=== PATIENT | male | born 1945 | race Caucasian/White ===

== ENCOUNTER 2024-06-23 17:05 | Inpatient (IN) | payer MEDICARE, OTHER ==
[~2024-06-23] VITALS: Ht 165.1 cm; Wt 60.3 kg
[2024-06-23] MEDS ORDERED: IV NS 0.9% 250 ML IV ONE (17:20)
[2024-06-23] MEDS ORDERED: IOHEXOL-350 100 ML VIAL IV ONE (17:20)
[2024-06-23 17:49] LABS: BASOPHILS % (AUTO) 0.5 % (0.0-2.0); EOSINOPHILS # (AUTO) 0.2 K/uL (0.0-0.7); EOSINOPHILS % (AUTO) 2.2 % (0.0-6.0); HEMATOCRIT 37 % (39-51); HEMOGLOBIN 12.7 g/dL (13.5-17.5); LYMPHOCYTES # (AUTO) 0.6 K/uL (0.8-4.8); LYMPHOCYTES % (AUTO) 6.6 % (20.0-44.0); MEAN CORPUSCULAR HEMOGLOBIN 32 PG (26.0-33.0); MEAN CORPUSCULAR HGB CONC 34 g/dl (31.0-36.0); MEAN CORPUSCULAR VOLUME 93 fL (80-96); MONOCYTES # (AUTO) 0.9 K/uL (0.1-1.30); MONOCYTES % (AUTO) 9.9 % (2.0-12.0); NEUTROPHILS # (AUTO) 7.5 K/uL (1.8-8.9); NEUTROPHILS % (AUTO) 80.8 % (43.0-81.0); PLATELET COUNT (AUTO) 176 K/uL (150-450); RED BLOOD CELL COUNT(AUTO) 3.97 MIL/uL (4.5-6.0); RED CELL DISTRIBUTION WIDTH 15.7 % (11.5-15.0); WHITE BLOOD COUNT (AUTO) 9.3 K/uL (4.3-11.0)
[2024-06-23 18:00] LABS: CALCIUM, SERUM 8.1 mg/dL (8.5-10.1); CARBON DIOXIDE 24 mmol/L (21-32); CHLORIDE 105 mmol/L (98-107); CREATININE 0.9 mg/dL (0.6-1.3); GLUCOSE 87 mg/dL (74-106); POTASSIUM 4.5 mmol/L (3.5-5.1); SODIUM SERUM 138 mmol/L (136-145); UREA NITROGEN, BLOOD 17 mg/dL (7-18)
[2024-06-23 18:05] LABS: ALANINE AMINOTRANSFERASE 70 U/L (12-78); ALKALINE PHOSPHATASE 80 U/L (46-116); ASPARTATE AMINOTRANSFERASE 40 U/L (15-37); BILIRUBIN,DIRECT 0.1 mg/dL (0.0-0.2); BILIRUBIN,TOTAL 0.4 mg/dL (0.2-1.0); TOTAL PROTEIN, SERUM 5.5 g/dL (6.4-8.2)
[2024-06-23 18:15] LABS: LACTIC ACID 2.6 mmol/L (0.4-2.0)
[2024-06-23 18:16] LABS: INR 1.03 (0.91-1.10); PARTIAL THROMBOPLASTIN TIME 31.9 SEC (24.3-34.3); PROTHROMBIN TIME 10.9 SECS (9.2-11.1)
[2024-06-23 19:00] VITALS: O2SAT 97
[2024-06-23] MEDS ORDERED: MIDO5TAB4 PO (19:00)
[2024-06-23] MEDS ORDERED: POLY119P17 PO (19:00)
[2024-06-23] MEDS ORDERED: ATOR20TA PO (19:00)
[2024-06-23] MEDS ORDERED: FURO20TA4 PO (19:00)
[2024-06-23] MEDS ORDERED: PANT40TA49 PO (19:00)
[2024-06-23] MEDS ORDERED: LEVO175T7 PO (19:00)
[2024-06-23] MEDS ORDERED: CHOL100062 PO (19:00)
[2024-06-23] MEDS ORDERED: AMIO200T5 PO (19:00)
[2024-06-23] MEDS ORDERED: ALEN70TA80 PO (19:00)
[2024-06-23] MEDS ORDERED: ENOX40DI SQ (19:00)
[2024-06-23] MEDS ORDERED: POTA-10 PO (19:00)
[2024-06-23] MEDS ORDERED: NA P133E RC (19:00)
[2024-06-23] MEDS ORDERED: ACET325T53 PO (19:00)
[2024-06-23] MEDS ORDERED: PARO20TA7 PO (19:00)
[2024-06-23] MEDS ORDERED: BISA10SU11 RC (19:00)
[2024-06-23] MEDS ORDERED: SENN-291 PO (19:00)
[2024-06-23] MEDS ORDERED: DOCU100C36 PO (19:00)
[2024-06-23] MEDS ORDERED: FERR325T24 PO (19:00)
[2024-06-23] MEDS ORDERED: TAMS-12 PO (19:00)
[2024-06-23] MEDS ORDERED: CALC0.253 PO (19:00)
[2024-06-23] MEDS ORDERED: MAGN400O6 PO (19:00)
[2024-06-23] MEDS ORDERED: CALC-494 PO (19:00)
[2024-06-23] MEDS: ASPIRIN 81 MG TAB.CHEW PO ONE (20:31)
[2024-06-23] MEDS ORDERED: ASPIRIN 300 MG/SUPP.RECT RC ONE (20:32)
[2024-06-23] MEDS: ASPIRIN 300 MG/SUPP.RECT RC ONE (20:35)
[2024-06-23 21:17] VITALS: BP 107/60; TEMP 97.9; O2SAT 96
[2024-06-23] MEDS: ATORVASTATIN 40 MG TABLET PO SCH (22:00)
[2024-06-23] MEDS: BLOOD SUGAR DIAGNOSTIC 1 EACH STRIP IN SCH (22:27)
[2024-06-23] MEDS: ENOXAPARIN SODIUM 40 MG/0.4 ML DISP.SYRIN SQ SCH (23:04)
[2024-06-23] MEDS: IV D5/0.45 NACL 1,000 ML IV SCH (23:07)
[2024-06-24] VITALS: BP 89/50; TEMP 97.7; O2SAT 95
[2024-06-24 04:00] VITALS: BP 133/69; TEMP 97.5; O2SAT 95
[2024-06-24] MEDS: LEVOTHYROXINE SODIUM 175 MCG TABLET PO SCH (06:33)
[2024-06-24 06:46] LABS: BASOPHILS % (AUTO) 0.2 % (0.0-2.0); EOSINOPHILS # (AUTO) 0.3 K/uL (0.0-0.7); EOSINOPHILS % (AUTO) 3.9 % (0.0-6.0); HEMATOCRIT 37 % (39-51); HEMOGLOBIN 12.6 g/dL (13.5-17.5); LYMPHOCYTES # (AUTO) 0.7 K/uL (0.8-4.8); LYMPHOCYTES % (AUTO) 9.1 % (20.0-44.0); MEAN CORPUSCULAR HEMOGLOBIN 31 PG (26.0-33.0); MEAN CORPUSCULAR HGB CONC 34 g/dl (31.0-36.0); MEAN CORPUSCULAR VOLUME 92 fL (80-96); MONOCYTES # (AUTO) 0.9 K/uL (0.1-1.30); MONOCYTES % (AUTO) 12.9 % (2.0-12.0); NEUTROPHILS # (AUTO) 5.4 K/uL (1.8-8.9); NEUTROPHILS % (AUTO) 73.9 % (43.0-81.0); PLATELET COUNT (AUTO) 194 K/uL (150-450); RED BLOOD CELL COUNT(AUTO) 4.04 MIL/uL (4.5-6.0); RED CELL DISTRIBUTION WIDTH 15.6 % (11.5-15.0); WHITE BLOOD COUNT (AUTO) 7.3 K/uL (4.3-11.0)
[2024-06-24 07:04] LABS: THYROID STIMULATING HORMONE 84.75 uIU/mL (0.358-3.74)
[2024-06-24 07:11] LABS: CALCIUM, SERUM 8.7 mg/dL (8.5-10.1); CREATININE 0.8 mg/dL (0.6-1.3); POTASSIUM 3.6 mmol/L (3.5-5.1)
[2024-06-24] MEDS: CALCIUM CARBONATE 500 MG TAB.CHEW PO SCH (07:49)
[2024-06-24 08:00] VITALS: BP 123/62; TEMP 97.9; O2SAT 95
[2024-06-24] MEDS: CALCITRIOL 0.25 MCG CAPSULE PO SCH (09:00)
[2024-06-24] MEDS: AMIODARONE HCL 200 MG TABLET PO SCH (09:00)
[2024-06-24] MEDS: ASPIRIN EC 81 MG TABLET.DR PO SCH (09:00)
[2024-06-24] MEDS: PAROXETINE HCL 20 MG TABLET PO SCH (09:00)
[2024-06-24] MEDS: FERROUS SULFATE (325 MG) 325 MG/TAB TABLET PO SCH (09:00)
[2024-06-24] MEDS: FUROSEMIDE 20 MG TABLET PO SCH (09:00)
[2024-06-24] MEDS: CHOLECALCIFEROL 1,000 UNIT TABLET (VIT D3) PO SCH (09:00)
[2024-06-24] MEDS: TAMSULOSIN 0.4 MG CAP.SR.24H PO SCH (09:00)
[2024-06-24] MEDS: PANTOPRAZOLE 40 MG VIAL IV SCH (09:09)
[2024-06-24] MEDS: IV D5/0.45 NACL 1,000 ML IV PRN (11:11)
[2024-06-24] MEDS: CLOPIDOGREL BISULFATE 75 MG TABLET PO SCH (11:30)
[2024-06-24 12:34] VITALS: BP 115/58; TEMP 97.9; O2SAT 95
[2024-06-24] MEDS: THERAHONEY GEL 1.5 OZ TUBE TP SCH (13:04)
[2024-06-24 16:00] VITALS: BP 116/66; TEMP 97.3; O2SAT 96
[2024-06-24] MEDS: ENSURE ENLIVE 237 ML LIQUID (VANILLA) PO SCH (17:12)
[2024-06-24 20:00] VITALS: BP_SYST 119; BP_SYST 130; BP_DIAS 62; BP_DIAS 70; TEMP 98.1; O2SAT 95; O2SAT 96
[2024-06-25] VITALS: BP 119/62; TEMP 98.2; O2SAT 95
[2024-06-25 04:00] VITALS: BP 150/77; TEMP 98.1; O2SAT 97
[2024-06-25 07:00] VITALS: BP 111/43; TEMP 97.7; O2SAT 96
[2024-06-25 07:08] LABS: BASOPHILS % (AUTO) 0.4 % (0.0-2.0); EOSINOPHILS # (AUTO) 0.3 K/uL (0.0-0.7); EOSINOPHILS % (AUTO) 3.8 % (0.0-6.0); HEMATOCRIT 36 % (39-51); HEMOGLOBIN 12.4 g/dL (13.5-17.5); LYMPHOCYTES # (AUTO) 0.6 K/uL (0.8-4.8); LYMPHOCYTES % (AUTO) 6.5 % (20.0-44.0); MEAN CORPUSCULAR HEMOGLOBIN 32 PG (26.0-33.0); MEAN CORPUSCULAR HGB CONC 34 g/dl (31.0-36.0); MEAN CORPUSCULAR VOLUME 92 fL (80-96); MONOCYTES # (AUTO) 0.9 K/uL (0.1-1.30); MONOCYTES % (AUTO) 10.7 % (2.0-12.0); NEUTROPHILS # (AUTO) 6.8 K/uL (1.8-8.9); NEUTROPHILS % (AUTO) 78.6 % (43.0-81.0); PLATELET COUNT (AUTO) 218 K/uL (150-450); RED BLOOD CELL COUNT(AUTO) 3.94 MIL/uL (4.5-6.0); RED CELL DISTRIBUTION WIDTH 15.5 % (11.5-15.0); WHITE BLOOD COUNT (AUTO) 8.6 K/uL (4.3-11.0)
[2024-06-25 07:37] LABS: CALCIUM, SERUM 8.6 mg/dL (8.5-10.1); CREATININE 0.9 mg/dL (0.6-1.3); MAGNESIUM 2.1 mg/dL (1.8-2.4); PHOSPHORUS 3.8 mg/dL (2.5-4.9); POTASSIUM 3.7 mmol/L (3.5-5.1)
[2024-06-25] MEDS: POLYETHYLENE GLYCOL 3350 17 GM POWD.PACK PO SCH (08:11)
[2024-06-25] MEDS: PANTOPRAZOLE 40 MG TABLET.DR PO SCH (08:17)
[2024-06-25 16:00] VITALS: BP 117/60; TEMP 98.1; O2SAT 97
[2024-06-25 20:00] VITALS: BP 119/60; TEMP 98.1; O2SAT 96
[2024-06-26] VITALS: BP 128/54; TEMP 97.5; O2SAT 96
[2024-06-26 04:00] VITALS: BP 118/65; TEMP 97.9; O2SAT 95
[2024-06-26 06:51] LABS: BASOPHILS % (AUTO) 0.2 % (0.0-2.0); EOSINOPHILS # (AUTO) 0.3 K/uL (0.0-0.7); EOSINOPHILS % (AUTO) 3.7 % (0.0-6.0); HEMATOCRIT 35 % (39-51); HEMOGLOBIN 11.9 g/dL (13.5-17.5); LYMPHOCYTES # (AUTO) 0.5 K/uL (0.8-4.8); LYMPHOCYTES % (AUTO) 5.3 % (20.0-44.0); MEAN CORPUSCULAR HEMOGLOBIN 32 PG (26.0-33.0); MEAN CORPUSCULAR HGB CONC 34 g/dl (31.0-36.0); MEAN CORPUSCULAR VOLUME 92 fL (80-96); MONOCYTES # (AUTO) 1.1 K/uL (0.1-1.30); MONOCYTES % (AUTO) 13.1 % (2.0-12.0); NEUTROPHILS # (AUTO) 6.7 K/uL (1.8-8.9); NEUTROPHILS % (AUTO) 77.7 % (43.0-81.0); PLATELET COUNT (AUTO) 213 K/uL (150-450); RED BLOOD CELL COUNT(AUTO) 3.77 MIL/uL (4.5-6.0); RED CELL DISTRIBUTION WIDTH 15.6 % (11.5-15.0); WHITE BLOOD COUNT (AUTO) 8.7 K/uL (4.3-11.0)
[2024-06-26 08:00] VITALS: BP 118/63; TEMP 98.4; O2SAT 94
[2024-06-26] MEDS: LEVOTHYROXINE SODIUM 175 MCG TABLET PO SCH (08:07)
[2024-06-26] MEDS: DOCUSATE SODIUM 100 MG CAPSULE PO PRN (08:26)
[2024-06-26 08:30] LABS: CALCIUM, SERUM 8.3 mg/dL (8.5-10.1); CARBON DIOXIDE 25 mmol/L (21-32); CHLORIDE 103 mmol/L (98-107); CREATININE 0.9 mg/dL (0.6-1.3); GLUCOSE 123 mg/dL (74-106); PHOSPHORUS 3.6 mg/dL (2.5-4.9); POTASSIUM 4.3 mmol/L (3.5-5.1); SODIUM SERUM 135 mmol/L (136-145); UREA NITROGEN, BLOOD 14 mg/dL (7-18)
[2024-06-26] MEDS ORDERED: CLOP75TA15 PO (12:28)
[2024-06-26] MEDS ORDERED: ATOR40TA PO (12:28)
[2024-06-26] MEDS ORDERED: COLL30OI TP (12:28)
[2024-06-26] MEDS ORDERED: LEVO175T2 PO (12:28)
[2024-06-26] MEDS ORDERED: CEPH-570 PO (12:28)
[2024-06-26] MEDS ORDERED: Aspirin Ec PO (12:28)
[2024-06-26 16:00] VITALS: BP 121/60; TEMP 99; O2SAT 95
[2024-06-26 20:00] VITALS: BP 124/61; TEMP 98.6; O2SAT 95
[2024-06-26] MEDS: CEPHALEXIN MONOHYDRATE 500 MG CAPSULE PO SCH (21:19)
[2024-06-27] VITALS: BP 122/59; TEMP 98.1; O2SAT 93
[2024-06-27 04:00] VITALS: BP 121/60; TEMP 98.4; O2SAT 95
[2024-06-27 08:00] VITALS: BP 114/62; TEMP 97.9; O2SAT 93
[2024-06-27 16:31] VITALS: BP 120/60; TEMP 97.9; O2SAT 94
[2024-06-27 17:47] VITALS: BP 120/50
== END 2024-06-27 18:34 | DRG 67 ==
LOC: ER 17:13 → TELE 20:47
PROVIDERS: ATTEND Student in an Organized Health Care Education/Training Program
DX: I65.23 Occlusion and stenosis of bilateral carotid arteries (principal); L89.153 Pressure ulcer of sacral region, stage 3; D68.59 Other primary thrombophilia; F01.53 Vascular dementia, unspecified severity, with mood disturbance; L03.116 Cellulitis of left lower limb; E87.20 Acidosis, unspecified; D64.9 Anemia, unspecified; I87.2 Venous insufficiency (chronic) (peripheral); Z74.01 Bed confinement status; I48.91 Unspecified atrial fibrillation; I10 Essential (primary) hypertension; E03.9 Hypothyroidism, unspecified; F32.9 Major depressive disorder, single episode, unspecified; R29.708 NIHSS score 8; N40.0 Benign prostatic hyperplasia without lower urinary tract symptoms; S81.812A Laceration without foreign body, left lower leg, initial encounter; X58.XXXA Exposure to other specified factors, initial encounter; Y93.9 Activity, unspecified; Y92.89 Other specified places as the place of occurrence of the external cause; E78.5 Hyperlipidemia, unspecified; R29.810 Facial weakness
CPT/HCPCS: 36415; 70450-TC; 70496-TC; 70498-TC; 71045-TC; 80048-TC; 80061-TC; 80076-TC; 82962-TC; 83605-TC; 83735-TC; 84100-TC; 84439-TC; 84443-TC; 84484-TC; 85025-TC; 85730-TC; 87081-TC; 92526; 92611-TC; 93307-TC; 97110-TC; 97530-TC; 97535-TC; A4223; A6403; G0378; J1650; J2470; J3490; J7050; Q9967